=== PATIENT | female | born 1945 | race Caucasian/White ===

== ENCOUNTER 2021-01-18 21:42 | Emergency (ER) | payer MEDICARE, OTHER ==
[~2021-01-18] VITALS: Ht 157.5 cm; Wt 60.0 kg
[2021-01-18] MEDS ORDERED: CYCLOBENZAPRINE10 MG PO (23:16)
[2021-01-18] MEDS ORDERED: NAPROXEN500 MG PO (23:16)
[2021-01-18 23:26] VITALS: BP 145/79
== END 2021-01-18 23:55 | disposition home or self-care (01) ==
LOC: ED 21:42
DX: S33.9XXA Sprain of unspecified parts of lumbar spine and pelvis, initial encounter (principal); S13.9XXA Sprain of joints and ligaments of unspecified parts of neck, initial encounter; I10 Essential (primary) hypertension; V86.59XA Driver of other special all-terrain or other off-road motor vehicle injured in nontraffic accident, initial encounter; Y92.29 Other specified public building as the place of occurrence of the external cause; Z95.5 Presence of coronary angioplasty implant and graft

== ENCOUNTER 2024-12-27 21:52 | Emergency (ER) | payer MEDICARE ==
[~2024-12-27] VITALS: Ht 157.5 cm; Wt 65.0 kg
[~2024-12-27 21:52] MED LIST: CYCLOBENZAPRINE10 MG PO; NAPROXEN500 MG PO
[2024-12-27 22:37] VITALS: BP 163/74
[2024-12-27] MEDS ORDERED: PROMETHAZINE HCL 25 MG/ML AMP IV STA (22:43)
[2024-12-27] MEDS ORDERED: SODIUM CHLORIDE 0.9% 1,000 ML IV STA (22:43)
[2024-12-27] MEDS ORDERED: SODIUM CHLORIDE 0.9% 1,000 ML IV ONE (22:45)
[2024-12-27] MEDS ORDERED: LOPERAMIDE HCL 2 MG CAP PO ONE (22:45)
[2024-12-27 23:00] VITALS: BP 172/64
[2024-12-27 23:10] LABS: BASO% 0.2 % (0-3); EOS% 0.2 % (0-8); HEMATOCRIT 40.1 % (37.0-47.0); HEMOGLOBIN 13.5 g/dl (12.0-16.0); IMMATURE GRANULOCYTES 0.2 % (0.0-5.0); MEAN CELL VOLUME 90.7 fL CALC (80.0-100.0); MEAN CORPUSCULAR HGB 30.5 pG CALC (26.0-32.0); MEAN CORPUSCULAR HGB CONC 33.7 g/dL CAL (32.0-36.0); MONO% 15.9 % (2-13); NEUT# 3.21 thou/uL (2.00-7.15); NEUT% 65.5 % (42-76); RED BLOOD COUNT 4.42 mill/uL (4.20-5.60); RED CELL DISTRI WIDTH 13.1 % (11.5-15.5)
[2024-12-27 23:21] LABS: ALBUMIN 4.5 g/dL (3.2-5.0); BILIRUBIN, TOTAL 0.8 mg/dL (0.02-1.3); CREATININE 1.2 mg/dL (0.5-1.0); POTASSIUM 3.4 mmol/l (3.5-5.1); TOTAL PROTEIN 8.4 g/dL (6.3-8.2)
[2024-12-28] VITALS: BP 138/51
[2024-12-28 00:30] VITALS: BP 147/72
[2024-12-28 01:00] VITALS: BP 133/61
[2024-12-28] MEDS ORDERED: PROMETHAZINE HCL 25 MG/TAB PO ONE (01:15)
[2024-12-28] MEDS ORDERED: LOPERAMIDE HCL 2 MG CAP PO ONE (01:15)
[2024-12-28] MEDS ORDERED: PROMETHAZINE HY25 M1 PO (01:17)
[2024-12-28] MEDS ORDERED: ANTI-DIARRHE2 M1 PO (01:17)
[2024-12-28 01:30] VITALS: BP 143/67
== END 2024-12-28 01:30 | disposition home or self-care (01) ==
LOC: ED 21:52
PROVIDERS: Family Medicine
DX: A08.0 Rotaviral enteritis (principal); I10 Essential (primary) hypertension; Z95.5 Presence of coronary angioplasty implant and graft; Z20.822 Contact with and (suspected) exposure to COVID-19
CPT/HCPCS: J2550